=== PATIENT | male | born 1990 | race Caucasian/White ===

== ENCOUNTER 2018-10-16 18:13 | Emergency (ER) | payer OTHER, MEDICAID ==
[~2018-10-16] VITALS: Ht 172.7 cm; Wt 75.0 kg
[2018-10-16] MEDS ORDERED: SODIUM CHLORIDE 0.9% 1,000 ML IV ONE (19:31)
[2018-10-16 19:46] LABS: BASOPHILS % 0.6 % (0.0-2.0); EOSINOPHILS % 0.3 % (0.0-5.0); HEMATOCRIT. 37.5 % (42.0-52.0); HEMOGLOBIN. 12.6 g/dL (14.0-18.0); MEAN CORPUSCULAR HEMOGLOBIN 28.5 pg (28.0-32.0); MEAN CORPUSCULAR VOLUME 85.1 fL (80.0-94.0); MEAN PLATELET VOLUME 12.2 fl (7.4-10.4); MONOCYTES % 7.3 % (2.0-8.0); NEUTROPHILS % 64.8 % (40.0-76.0); PLATELET 160 x1000/uL (130-400); RED BLOOD CELL COUNT 4.41 mill/uL (4.7-6.1); RED CELL DISTRIBUTION WIDTH 15.6 % (11.6-14.6)
[2018-10-16 20:05] LABS: *AMPHETAMINES SCREEN URINE NEGATIVE (NEGATIVE); *BENZODIAZEPINES SCREEN URINE NEGATIVE (NEGATIVE); *COCAINE SCREEN URINE NEGATIVE (NEGATIVE); CANNABINOID URINE SCREEN PRESUMTIVE POSITIVE (NEGATIVE); OPIATES URINE SCREEN NEGATIVE (NEGATIVE); PHENCYCLIDINE URINE SCREEN PRESUMTIVE POSITIVE (NEGATIVE)
[2018-10-16 20:06] LABS: *BARBITURATES SCREEN URINE NEGATIVE (NEGATIVE); METHADONE URINE SCREEN PRESUMTIVE POSITIVE (NEGATIVE)
[2018-10-16 20:30] LABS: CHLORIDE 109 mEq/L (98-107)
[2018-10-16 21:10] VITALS: BP 115/70
== END 2018-10-16 21:14 | disposition home or self-care (01) ==
LOC: ER 18:13 → EDBD 18:13 → ER 21:14
DX: R55 Syncope and collapse (principal); F19.10 Other psychoactive substance abuse, uncomplicated; F17.210 Nicotine dependence, cigarettes, uncomplicated
CPT/HCPCS: 36415; 80053; 80305; 84484; 85025; 93005; 99284; J7030; Z7610

== ENCOUNTER 2018-10-25 15:05 | Emergency (ER) | payer OTHER, MEDICAID ==
[~2018-10-25] VITALS: Ht 167.6 cm; Wt 86.0 kg
[2018-10-25] MEDS ORDERED: CEPHALEXIN 250MG CAPSULE PO ONE (18:45)
[2018-10-25] MEDS ORDERED: BACITRACIN ZINC OINT UDPKT TOP ONE (18:45)
[2018-10-25] MEDS ORDERED: SULFAMETHOXAZOLE/TRIMETHOPRIM 800/160MG TABLET PO ONE (18:45)
[2018-10-25] MEDS ORDERED: IBUPROFEN 600MG TABLET PO ONE (18:45)
[2018-10-25 19:22] VITALS: BP 149/94
== END 2018-10-25 19:25 | disposition home or self-care (01) ==
LOC: ER 15:05
DX: L03.311 Cellulitis of abdominal wall (principal); F12.10 Cannabis abuse, uncomplicated; F11.10 Opioid abuse, uncomplicated
CPT/HCPCS: 99284

== ENCOUNTER 2019-01-12 12:27 | Emergency (ER) | payer OTHER, MEDICAID ==
[~2019-01-12] VITALS: Ht 170.2 cm; Wt 82.0 kg
[2019-01-12] MEDS ORDERED: LIDOCAINE HCL/PF 1% 10 MG/ML 5ML VIAL IJ ONE (13:00)
[2019-01-12 13:31] VITALS: BP 132/69
== END 2019-01-12 13:32 | disposition home or self-care (01) ==
LOC: ER 13:11
DX: L02.413 Cutaneous abscess of right upper limb (principal); F12.10 Cannabis abuse, uncomplicated; F15.10 Other stimulant abuse, uncomplicated
CPT/HCPCS: 10060; 99283; J3490

== ENCOUNTER 2020-03-09 23:46 | Emergency (ER) | payer OTHER, MEDICAID ==
[~2020-03-09] VITALS: Ht 170.2 cm; Wt 79.0 kg
[2020-03-09 23:51] VITALS: BP 154/106
[2020-03-10] MEDS ORDERED: ACETAMINOPHEN 500MG TABLET PO ONE (00:30)
[2020-03-10] MEDS ORDERED: AZITHROMYCIN 500 MG TABLET PO ONE (03:15)
[2020-03-10] MEDS ORDERED: CEFTRIAXONE SODIUM 250 MG/VIAL IM ONE (03:15)
[2020-03-10] MEDS ORDERED: LEVOFLOXACIN 250MG TABLET PO ONE (03:15)
== END 2020-03-10 05:01 | disposition left against medical advice (07) ==
LOC: ER 23:46
DX: N45.1 Epididymitis (principal); N50.819 Testicular pain, unspecified; F17.200 Nicotine dependence, unspecified, uncomplicated
CPT/HCPCS: 76870; 93005; 93976; 99284

== ENCOUNTER 2020-05-18 16:00 | Emergency (ER) | payer OTHER, MEDICAID ==
[~2020-05-18] VITALS: Ht 170.2 cm; Wt 73.0 kg
[2020-05-18 16:02] VITALS: BP 170/100
[2020-05-18] MEDS ORDERED: ACETAMINOPHEN 325MG TABLET PO STA (16:47)
[2020-05-18] MEDS ORDERED: VANCOMYCIN 1 G PREMIX 200 ML IV ONE (17:00)
[2020-05-18] MEDS ORDERED: TETANUS, DIPHTHERIA, PERTUSSIS VAC/PF 0.5ML (>7YR OLD) IM ONE (17:00)
[2020-05-18] MEDS ORDERED: CEFTRIAXONE 1 G PREMIX 50 ML IV ONE (17:00)
== END 2020-05-18 20:57 | disposition left against medical advice (07) ==
LOC: ER 16:00
DX: I10 Essential (primary) hypertension (principal); F12.10 Cannabis abuse, uncomplicated; F11.10 Opioid abuse, uncomplicated; Z53.21 Procedure and treatment not carried out due to patient leaving prior to being seen by health care provider
CPT/HCPCS: 93005; 99281

== ENCOUNTER 2020-06-16 17:53 | Inpatient (IN) | payer MEDICAID, OTHER ==
[~2020-06-16] VITALS: Ht 170.2 cm; Wt 63.0 kg
[2020-06-16] MEDS ORDERED: HALOPERIDOL LACTATE 5MG/ML VIAL IM STA (18:02)
[2020-06-16] MEDS ORDERED: LORAZEPAM 2MG/ML CPJ IV STA (18:02)
[2020-06-16] MEDS ORDERED: DIPHENHYDRAMINE 50MG/ML VIAL IM STA (18:02)
[2020-06-16] MEDS ORDERED: KETOROLAC 30MG/ML VIAL IV STA (18:16)
[2020-06-16] MEDS ORDERED: PIPERACILLIN/TAZ 3.375G PREMIX 50 ML IV ONE (18:30)
[2020-06-16] MEDS ORDERED: SODIUM CHLORIDE 0.9% 1,000 ML IV ONE ×2 (18:30)
[2020-06-16 18:36] LABS: BASOPHILS % 0.1 % (0.0-2.0); HEMATOCRIT. 39.2 % (42.0-52.0); HEMOGLOBIN. 13.2 g/dL (14.0-18.0); LYMPHOCYTES % 7.4 % (20.0-50.0); MEAN CORPUSCULAR HEMOGLOBIN 28.6 pg (28.0-32.0); MEAN CORPUSCULAR VOLUME 84.9 fL (80.0-94.0); MEAN PLATELET VOLUME 10.8 fl (7.4-10.4); MONOCYTES % 5.2 % (2.0-8.0); NEUTROPHILS % 87.3 % (40.0-76.0); PLATELET 165 x1000/uL (130-400); RED BLOOD CELL COUNT 4.62 mill/uL (4.7-6.1); RED CELL DISTRIBUTION WIDTH 15.3 % (11.6-14.6)
[2020-06-16 18:38] LABS: CLARITY URINE CLEAR (CLEAR); COLOR URINE YELLOW (YELLOW); KETONES URINE TRACE (NEGATIVE); LEUKOCYTE ESTERASE URINE NEGATIVE (NEGATIVE); NITRITE URINE NEGATIVE (NEGATIVE); OCCULT BLOOD URINE NEGATIVE (NEGATIVE); PH URINE 5.5 (4.5-8.0); PROTEIN URINE 2+ (NEGATIVE); SPECIFIC GRAVITY URINE 1.015 (1.005-1.030); UROBILINOGEN URINE 0.2 E.U./dL (0.2-1.0)
[2020-06-16] MEDS ORDERED: OLANZAPINE 5MG TABLET ODT PO ONE (18:45)
[2020-06-16 18:57] LABS: CHLORIDE 103 mEq/L (98-107)
[2020-06-16 19:01] LABS: ETHANOL BLOOD < 10 mg/dL
[2020-06-16 19:19] LABS: *AMPHETAMINES SCREEN URINE PRESUMTIVE POSITIVE (NEGATIVE); *BARBITURATES SCREEN URINE NEGATIVE (NEGATIVE); *BENZODIAZEPINES SCREEN URINE NEGATIVE (NEGATIVE); *COCAINE SCREEN URINE NEGATIVE (NEGATIVE); METHADONE URINE SCREEN PRESUMTIVE POSITIVE (NEGATIVE); OPIATES URINE SCREEN PRESUMTIVE POSITIVE (NEGATIVE)
[2020-06-16 19:20] LABS: CANNABINOID URINE SCREEN NEGATIVE (NEGATIVE); PHENCYCLIDINE URINE SCREEN NEGATIVE (NEGATIVE)
[2020-06-16] MEDS ORDERED: HYDRALAZINE 20MG/ML VIAL IV PRN (22:45)
[2020-06-16] MEDS ORDERED: ONDANSETRON HCL 4MG/2ML INJ IV PRN (22:45)
[2020-06-16] MEDS ORDERED: MAGNESIUM/ALUMINUM HYDROXIDE/SIMETHICONE 30ML UDC PO PRN (22:45)
[2020-06-16] MEDS ORDERED: IPRATROPIUM/ALBUTEROL 0.5-3(2.5)MG/3ML NEB HHN PRN (22:45)
[2020-06-16] MEDS ORDERED: DOCUSATE SODIUM 100MG CAPSULE PO PRN (22:45)
[2020-06-16] MEDS ORDERED: GUAIFENESIN 200MG/10ML SUGAR FREE UDC PO PRN (22:45)
[2020-06-16] MEDS ORDERED: CLONIDINE 0.1MG TABLET PO PRN (22:45)
[2020-06-17] MEDS: SODIUM CHLORIDE 0.45% 1,000 ML IV SCH ×3 (04:04→19:41)
[2020-06-17] MEDS: ENOXAPARIN 40MG/0.4ML SYR SUBCUT SCH ×2 (04:04→19:44)
[2020-06-17] MEDS: PIPERACILLIN/TAZ 3.375G PREMIX 50 ML IV SCH ×3 (04:05→17:47)
[2020-06-17] MEDS: DIPHENHYDRAMINE 50MG/ML VIAL IV PRN ×2 (04:05→10:12)
[2020-06-17] MEDS: LORAZEPAM 2MG/ML CPJ IV PRN ×3 (04:05→17:48)
[2020-06-17] MEDS: HYDROCODONE/ACETAMINOPHEN 10/325MG TABLET PO PRN ×5 (04:05→22:38)
[2020-06-17 04:44] LABS: BASOPHILS % 0.4 % (0.0-2.0); EOSINOPHILS % 0.1 % (0.0-5.0); HEMATOCRIT. 34.3 % (42.0-52.0); HEMOGLOBIN. 11.1 g/dL (14.0-18.0); LYMPHOCYTES % 9.2 % (20.0-50.0); MEAN CORPUSCULAR HEMOGLOBIN 27.8 pg (28.0-32.0); MEAN PLATELET VOLUME 10.5 fl (7.4-10.4); MONOCYTES % 9.1 % (2.0-8.0); NEUTROPHILS % 81.2 % (40.0-76.0); PLATELET 134 x1000/uL (130-400); RED BLOOD CELL COUNT 3.99 mill/uL (4.7-6.1); RED CELL DISTRIBUTION WIDTH 15.1 % (11.6-14.6)
[2020-06-17 04:55] LABS: CHLORIDE 113 mEq/L (98-107)
[2020-06-17] MEDS: SODIUM CHLORIDE 0.9% INJ 3ML FLUSH IVF SCH ×2 (07:40→14:46)
[2020-06-17] MEDS: ACETAMINOPHEN 325MG TABLET PO PRN ×2 (10:13→17:46)
[2020-06-17 20:00] VITALS: BP 139/79
[2020-06-17 21:35] VITALS: BP 139/79
[2020-06-18] VITALS: BP 154/92
[2020-06-18] MEDS: SODIUM CHLORIDE 0.9% INJ 3ML FLUSH IVF SCH ×4 (00:13→20:14)
[2020-06-18] MEDS: LORAZEPAM 2MG/ML CPJ IV PRN ×3 (00:43→22:06)
[2020-06-18] MEDS: PIPERACILLIN/TAZOBACTAM 3.375 G in DEXT 5% WATER 100 ML IV SCH ×3 (01:30→17:14)
[2020-06-18] MEDS: DIPHENHYDRAMINE 50MG/ML VIAL IV PRN (01:30)
[2020-06-18 04:00] VITALS: BP 161/101
[2020-06-18] MEDS: HYDROCODONE/ACETAMINOPHEN 10/325MG TABLET PO PRN ×4 (04:10→20:15)
[2020-06-18] MEDS: SODIUM CHLORIDE 0.45% 1,000 ML IV SCH ×2 (04:13→15:15)
[2020-06-18 09:27] VITALS: BP 151/89
[2020-06-18 12:00] VITALS: BP 123/79
[2020-06-18 16:00] VITALS: BP 124/79
[2020-06-18 20:00] VITALS: BP 115/61
[2020-06-18] MEDS: ENOXAPARIN 40MG/0.4ML SYR SUBCUT SCH (20:14)
[2020-06-19] VITALS: BP 117/72
[2020-06-19] MEDS: ACETAMINOPHEN 325MG TABLET PO PRN (00:07)
[2020-06-19] MEDS: PIPERACILLIN/TAZOBACTAM 3.375 G in DEXT 5% WATER 100 ML IV SCH ×3 (01:03→19:05)
[2020-06-19] MEDS: SODIUM CHLORIDE 0.45% 1,000 ML IV SCH (01:06)
[2020-06-19 04:00] VITALS: BP 113/70
[2020-06-19] MEDS: DIPHENHYDRAMINE 50MG/ML VIAL IV PRN ×2 (04:34→20:58)
[2020-06-19] MEDS: LORAZEPAM 2MG/ML CPJ IV PRN ×3 (05:25→15:55)
[2020-06-19] MEDS: SODIUM CHLORIDE 0.9% INJ 3ML FLUSH IVF SCH ×3 (05:25→21:00)
[2020-06-19 07:55] VITALS: BP 121/75
[2020-06-19] MEDS: HYDROCODONE/ACETAMINOPHEN 10/325MG TABLET PO PRN ×2 (09:00→20:59)
[2020-06-19 10:14] LABS: HEMATOCRIT 27.9 % (42.0-52.0); HEMOGLOBIN 9.2 g/dL (14.0-18.0); MEAN CORPUSCULAR HEMOGLOBIN 28.5 pg (28.0-32.0); PLATELET 130 x1000/uL (130-400); RED BLOOD CELL COUNT 3.24 mill/uL (4.7-6.1); RED CELL DISTRIBUTION WIDTH 15.1 % (11.6-14.6)
[2020-06-19 10:19] LABS: CHLORIDE 93 mEq/L (98-107)
[2020-06-19] MEDS: SODIUM CHLORIDE 0.9% 1,000 ML IV SCH (11:36)
[2020-06-19 12:00] VITALS: BP 124/64
[2020-06-19] MEDS ORDERED: POTASSIUM CHLORIDE INJ 60 MEQ in DEXT 5% WATER 500 ML IV SCH (13:00)
[2020-06-19 16:11] VITALS: BP 117/68
[2020-06-19 20:00] VITALS: BP 126/79
[2020-06-19] MEDS: ENOXAPARIN 40MG/0.4ML SYR SUBCUT SCH (20:58)
[2020-06-20] VITALS: BP 117/69
[2020-06-20] MEDS: SODIUM CHLORIDE 0.9% 1,000 ML IV SCH ×2 (00:39→15:08)
[2020-06-20] MEDS: PIPERACILLIN/TAZOBACTAM 3.375 G in DEXT 5% WATER 100 ML IV SCH ×3 (01:33→17:29)
[2020-06-20] MEDS: HYDROCODONE/ACETAMINOPHEN 10/325MG TABLET PO PRN ×2 (02:46→20:22)
[2020-06-20 04:00] VITALS: BP 135/81
[2020-06-20] MEDS: SODIUM CHLORIDE 0.9% INJ 3ML FLUSH IVF SCH ×3 (06:17→21:28)
[2020-06-20 06:29] LABS: BASOPHILS % 0.5 % (0.0-2.0); EOSINOPHILS % 1.2 % (0.0-5.0); HEMATOCRIT. 38.3 % (42.0-52.0); HEMOGLOBIN. 12.3 g/dL (14.0-18.0); LYMPHOCYTES % 15.7 % (20.0-50.0); MEAN CORPUSCULAR HEMOGLOBIN 27.5 pg (28.0-32.0); MEAN CORPUSCULAR VOLUME 85.5 fL (80.0-94.0); MEAN PLATELET VOLUME 11.3 fl (7.4-10.4); MONOCYTES % 8.4 % (2.0-8.0); NEUTROPHILS % 74.2 % (40.0-76.0); PLATELET 194 x1000/uL (130-400); RED BLOOD CELL COUNT 4.48 mill/uL (4.7-6.1); RED CELL DISTRIBUTION WIDTH 14.8 % (11.6-14.6)
[2020-06-20 07:07] LABS: CHLORIDE 104 mEq/L (98-107)
[2020-06-20 08:00] VITALS: BP 115/65
[2020-06-20] MEDS ORDERED: LIDOCAINE HCL/PF 1% 10 MG/ML 5ML VIAL IJ SCH (10:00)
[2020-06-20 12:00] VITALS: BP 110/62
[2020-06-20 16:00] VITALS: BP 131/73
[2020-06-20 20:05] VITALS: BP 128/86
[2020-06-20] MEDS: DIPHENHYDRAMINE 50MG/ML VIAL IV PRN (20:22)
[2020-06-20] MEDS: ENOXAPARIN 40MG/0.4ML SYR SUBCUT SCH (20:23)
[2020-06-20] MEDS: LORAZEPAM 2MG/ML CPJ IV PRN (22:15)
[2020-06-21 00:16] VITALS: BP 122/78
[2020-06-21] MEDS: SODIUM CHLORIDE 0.9% 1,000 ML IV SCH ×2 (03:01→17:21)
[2020-06-21 04:00] VITALS: BP 130/71
[2020-06-21] MEDS: PIPERACILLIN/TAZOBACTAM 3.375 G in DEXT 5% WATER 100 ML IV SCH ×3 (04:08→17:22)
[2020-06-21] MEDS: SODIUM CHLORIDE 0.9% INJ 3ML FLUSH IVF SCH ×3 (05:47→22:00)
[2020-06-21 08:00] VITALS: BP 117/58
[2020-06-21] MEDS: ACETAMINOPHEN 325MG TABLET PO PRN ×2 (09:50→17:22)
[2020-06-21 12:00] VITALS: BP 124/72
[2020-06-21 16:00] VITALS: BP 126/78
[2020-06-21 20:11] VITALS: BP 121/76
[2020-06-21] MEDS: ENOXAPARIN 40MG/0.4ML SYR SUBCUT SCH (21:35)
[2020-06-22] VITALS: BP 124/76
[2020-06-22] MEDS: PIPERACILLIN/TAZOBACTAM 3.375 G in DEXT 5% WATER 100 ML IV SCH ×3 (02:00→17:15)
[2020-06-22 04:00] VITALS: BP 118/68
[2020-06-22 05:14] LABS: HIV SCREEN 4G Non Reactive (Non Reactive)
[2020-06-22] MEDS: SODIUM CHLORIDE 0.9% INJ 3ML FLUSH IVF SCH ×3 (06:00→22:00)
[2020-06-22 08:00] VITALS: BP 133/73
[2020-06-22] MEDS: ACETAMINOPHEN 325MG TABLET PO PRN (08:51)
[2020-06-22] MEDS: LORAZEPAM 1MG TABLET PO PRN ×2 (09:29→20:57)
[2020-06-22 12:00] VITALS: BP 123/65
[2020-06-22 16:00] VITALS: BP 136/70
[2020-06-22] MEDS: SODIUM CHLORIDE 0.9% 1,000 ML IV SCH (18:16)
[2020-06-22 19:50] VITALS: BP 114/67
[2020-06-22] MEDS: ENOXAPARIN 40MG/0.4ML SYR SUBCUT SCH (20:21)
[2020-06-23] VITALS: BP 131/68
[2020-06-23 04:00] VITALS: BP 128/68
[2020-06-23] MEDS: SODIUM CHLORIDE 0.9% INJ 3ML FLUSH IVF SCH ×3 (05:58→22:00)
[2020-06-23 08:00] VITALS: BP 125/71
[2020-06-23] MEDS: SODIUM CHLORIDE 0.9% 1,000 ML IV SCH ×2 (08:05→21:55)
[2020-06-23 12:00] VITALS: BP 118/67
[2020-06-23] MEDS: LORAZEPAM 1MG TABLET PO PRN ×2 (14:38→20:10)
[2020-06-23 16:00] VITALS: BP 116/68
[2020-06-23 20:00] VITALS: BP 126/87
[2020-06-23] MEDS: ENOXAPARIN 40MG/0.4ML SYR SUBCUT SCH (20:11)
[2020-06-24] VITALS (7 sets, daily range): BP systolic 102–132; BP diastolic 50–89
[2020-06-24] MEDS: SODIUM CHLORIDE 0.9% INJ 3ML FLUSH IVF SCH ×3 (06:00→20:36)
[2020-06-24 06:24] LABS: BASOPHILS % 0.8 % (0.0-2.0); EOSINOPHILS % 1.3 % (0.0-5.0); HEMATOCRIT. 39.3 % (42.0-52.0); HEMOGLOBIN. 13.1 g/dL (14.0-18.0); LYMPHOCYTES % 32.2 % (20.0-50.0); MEAN CORPUSCULAR HEMOGLOBIN 28.6 pg (28.0-32.0); MEAN PLATELET VOLUME 10.4 fl (7.4-10.4); MONOCYTES % 6.7 % (2.0-8.0); PLATELET 251 x1000/uL (130-400); RED BLOOD CELL COUNT 4.57 mill/uL (4.7-6.1); RED CELL DISTRIBUTION WIDTH 14.9 % (11.6-14.6)
[2020-06-24 06:36] LABS: CHLORIDE 106 mEq/L (98-107)
[2020-06-24] MEDS: SODIUM CHLORIDE 0.9% 1,000 ML IV SCH ×2 (11:15→23:13)
[2020-06-24] MEDS: ENOXAPARIN 40MG/0.4ML SYR SUBCUT SCH (20:32)
[2020-06-24] MEDS: ACETAMINOPHEN 325MG TABLET PO PRN (21:24)
[2020-06-24] MEDS: LORAZEPAM 1MG TABLET PO PRN (22:28)
[2020-06-25 05:00] VITALS: BP 132/68
[2020-06-25] MEDS: SODIUM CHLORIDE 0.9% INJ 3ML FLUSH IVF SCH ×2 (05:36→13:15)
[2020-06-25 08:00] VITALS: BP 116/76
[2020-06-25 12:00] VITALS: BP 124/77
[2020-06-25] MEDS: SODIUM CHLORIDE 0.9% 1,000 ML IV SCH (13:15)
[2020-06-25 16:00] VITALS: BP 128/74
[2020-06-25] MEDS: LORAZEPAM 1MG TABLET PO PRN (18:52)
[2020-06-25 19:30] VITALS: BP 108/71
[2020-06-25] MEDS: ENOXAPARIN 40MG/0.4ML SYR SUBCUT SCH (20:34)
[2020-06-25] MEDS: ACETAMINOPHEN 325MG TABLET PO PRN (20:59)
[2020-06-25 22:48] VITALS: BP 108/71
== END 2020-06-25 22:30 | disposition short-term general hospital (02) | DRG 364 ==
LOC: ER 17:53 → EDBEDREQSVC 21:29 → EDBEDREQTM 21:29 → EDBEDREQ 21:29 → EDBEDREQTM 21:31 → ENRESERV 06-17 20:06 → 5WST 06-17 20:59
PROVIDERS: ADMIT Internal Medicine; ATTEND Internal Medicine
PROC: 0J9G0ZZ Drainage of Right Lower Arm Subcutaneous Tissue and Fascia, Open Approach (ICD-10-PCS; principal; 2020-06-20)
DX: L02.413 Cutaneous abscess of right upper limb (principal); E87.6 Hypokalemia; S59.811A Other specified injuries right forearm, initial encounter; F17.200 Nicotine dependence, unspecified, uncomplicated; Z20.822 Contact with and (suspected) exposure to COVID-19; R65.10 Systemic inflammatory response syndrome (SIRS) of non-infectious origin without acute organ dysfunction; F99 Mental disorder, not otherwise specified; X83.8XXA Intentional self-harm by other specified means, initial encounter; Y93.89 Activity, other specified; Y92.89 Other specified places as the place of occurrence of the external cause; Y99.8 Other external cause status; F19.10 Other psychoactive substance abuse, uncomplicated; D50.0 Iron deficiency anemia secondary to blood loss (chronic); E87.2 Acidosis; E44.0 Moderate protein-calorie malnutrition; Z68.21 Body mass index [BMI] 21.0-21.9, adult; R64 Cachexia
CPT/HCPCS: 36415; 71045; 73201; 80048; 80053; 80305; 80307; 80320; 80329; 81003; 83036; 83605; 83930; 84145; 85025; 85027; 87389; 87426; 93005; 93970; 99291; C1893; J1200; J1650; J1885; J2060; J2405; J2543; J3480; J3490; J7030; J7060; U0003; G0480

== ENCOUNTER 2020-07-25 10:33 | Emergency (ER) | payer MEDICAID, OTHER ==
[~2020-07-25] VITALS: Ht 177.8 cm; Wt 81.0 kg
[2020-07-25 12:19] LABS: BASOPHILS % 0.3 % (0.0-2.0); EOSINOPHILS % 0.3 % (0.0-5.0); HEMATOCRIT. 42.5 % (42.0-52.0); HEMOGLOBIN. 14.3 g/dL (14.0-18.0); LYMPHOCYTES % 23.7 % (20.0-50.0); MEAN CORPUSCULAR HEMOGLOBIN 28.7 pg (28.0-32.0); MEAN CORPUSCULAR VOLUME 85.3 fL (80.0-94.0); MEAN PLATELET VOLUME 10.3 fl (7.4-10.4); MONOCYTES % 5.8 % (2.0-8.0); NEUTROPHILS % 69.9 % (40.0-76.0); PLATELET 183 x1000/uL (130-400); RED BLOOD CELL COUNT 4.99 mill/uL (4.7-6.1); RED CELL DISTRIBUTION WIDTH 16.3 % (11.6-14.6)
[2020-07-25 12:31] LABS: CHLORIDE 104 mEq/L (98-107)
[2020-07-25 12:35] LABS: ETHANOL BLOOD < 10 mg/dL
[2020-07-25 13:54] LABS: *BARBITURATES SCREEN URINE NEGATIVE (NEGATIVE); *BENZODIAZEPINES SCREEN URINE NEGATIVE (NEGATIVE); *COCAINE SCREEN URINE NEGATIVE (NEGATIVE)
[2020-07-25 13:55] LABS: *AMPHETAMINES SCREEN URINE PRESUMTIVE POSITIVE (NEGATIVE); CANNABINOID URINE SCREEN PRESUMTIVE POSITIVE (NEGATIVE); METHADONE URINE SCREEN NEGATIVE (NEGATIVE); OPIATES URINE SCREEN PRESUMTIVE POSITIVE (NEGATIVE); PHENCYCLIDINE URINE SCREEN NEGATIVE (NEGATIVE)
[2020-07-25 14:00] VITALS: BP 136/89
== END 2020-07-25 14:30 ==
LOC: ER 10:47
DX: R45.851 Suicidal ideations (principal); F31.9 Bipolar disorder, unspecified; F20.9 Schizophrenia, unspecified; F12.10 Cannabis abuse, uncomplicated; F11.10 Opioid abuse, uncomplicated
CPT/HCPCS: 36415; 80048; 80305; 80307; 80320; 80329; 85025; 93005; 99284; G0480